=== PATIENT | male | born 1985 | race Caucasian/White ===

== ENCOUNTER 2018-09-09 01:17 | Emergency (ER) | payer SELFPAY ==
[~2018-09-09] VITALS: Ht 180.3 cm; Wt 84.1 kg
[2018-09-09 01:24] VITALS: BP 146/91
== END 2018-09-09 01:41 | disposition left against medical advice (07) ==
LOC: EMS 01:19
DX: M54.2 Cervicalgia (principal); R07.89 Other chest pain; Z53.21 Procedure and treatment not carried out due to patient leaving prior to being seen by health care provider